=== PATIENT | male | born 1990 | race African-American/Black ===

== ENCOUNTER 2016-11-19 22:30 | Emergency (ER) | payer OTHER ==
[2016-11-19 22:11] LABS: INFLUENZA A NEG (NEG); INFLUENZA B NEG (NEG)
== END 2016-11-19 23:08 | disposition home or self-care (01) ==
LOC: CFTX 22:30
DX: J06.9 Acute upper respiratory infection, unspecified (principal); F17.210 Nicotine dependence, cigarettes, uncomplicated
CPT/HCPCS: 87651; 87804; 99283